=== PATIENT | female | born 1960 | race Caucasian/White ===

== ENCOUNTER 2023-04-28 17:12 | Outpatient (CLI) | payer BC, MEDICARE, SELFPAY | END 2023-04-28 17:13 | disposition home or self-care (01) | LOC: LKVREF 17:13 | PROVIDERS: PCP Emergency Medicine; Visit Provider Emergency Medicine | DX: I10 Essential (primary) hypertension (principal) | CPT/HCPCS: 80053 ==

== ENCOUNTER 2023-05-21 14:58 | Outpatient (CLI) | payer MEDICARE, SELFPAY ==
--- NOTE | 2023-05-21 15:30 | XR_ITS ---
Patient: BRIGIDO HORNE Facility:?[facility] Patient ID:?[id number] Site Patient ID:?[id number]. Site :?[id number] Study:?DEXA-Bone Density SPINE/BOTH HIPS-05/21/2023 3:26:50 PM Ordering Physician:ALEJANDRO Final Report: DXA BONE MINERAL DENSITY STUDY Reason for exam: Screening. Current height (in): 60.5. Weight (lb): 163.0. Menopause age: 60. Ethnicity: White. 1. Have you had a previous hip or vertebral fracture? No. 2. Have you had any fractures during your adult life which did not result from significant trauma (e.g., auto accident)? No. 3. Did either of your parents have a hip fracture? No. 4. Do you smoke? No. 5. Have you ever taken Glucocorticoids? No. 6. Do you have rheumatoid arthritis? Yes. 7. Do you have secondary osteoporosis? No. 8. Do you drink 3 or more alcoholic drinks per day? No. 9. Are you being treated for osteoporosis? No. 10. Have you ever taken any of the following medications: Actonel, Evista, Fosamax, Miacalcin, Reclast, Boniva, Forteo, HRT (i.e. estrogen/hormone therapy), Protelos, Prolia, Vitamin D, Calcium, other ? please specify. ANSWER: Yes, vitamin D, calcium. 11. Do you have any of the following medical conditions: Anorexia or bulimia, asthma or emphysema, end stage renal disease, hyperparathyroidism, any seizure disorders, cancer, inflammatory bowel diseases, hysterectomy, other ? please specify. ANSWER: Yes, hyperparathyroidism, hysterectomy. 12. What was your maximum height (inches)? 61. 13. Do you perform weight bearing exercise regularly? Yes. 14. Do you regularly consume dairy products? Yes. 15. Do you drink caffeinated beverages? Yes. 16. At what age did your period start? 9. 17. Are you premenopausal? No. 18. How many full term pregnancies have you had? 1. 19. Have you ever missed your period for more than 6 months in a row (not including or menopause)? No. TECHNIQUE: Bone mineral density study was performed using the [employer]. FINDINGS: The results of the study expressed as bone mineral density (BMD) are as follows: Lumbar spine L1 to L4: BMD: 1.316 g/cm2. T-score: 2.4. Z-score: 4.2. Neck Left: BMD: 0.787 g/cm2. T-score: -0.6. Z-score: 1.0. Right: BMD: 0.794 g/cm2. T-score: -0.5. Z-score: 1.0. Total Left: BMD: 1.119 g/cm2. T-score: 1.5. Z-score: 2.7. Right: BMD: 1.072 g/cm2. T-score: 1.1. Z-score: 2.3. IMPRESSION: Normal bone density. Arsenio Pierson M.D. Diagnostic Radiologist [email or web address] JALYN/[email or web address] / be/Dictated by: Arsenio Pierson MD @ 05/22/2023 9:21:00 AM Signed by:?Arsenio Pierson MD @05/23/2023 10:15:02 AM (Electronic Signature)
== END 2023-05-21 14:59 | disposition home or self-care (01) ==
LOC: RAD 14:59
PROVIDERS: PCP Emergency Medicine; Visit Provider Emergency Medicine
DX: Z13.820 Encounter for screening for osteoporosis (principal)
CPT/HCPCS: 77080

== ENCOUNTER 2023-07-23 11:13 | Outpatient (CLI) | payer MEDICARE, SELFPAY ==
--- NOTE | 2023-07-23 11:30 | MM_ITS ---
Patient: BRIGIDO HORNE Facility:?[facility] Patient ID:?[id number] Site Patient ID:?[id number]. Site :?1960 Study:?XRay-Breast Bilateral 3D W/CAD-07/23/2023 11:51:02 AM Ordering Physician:Concha Godoy Final Report: BILATERAL SCREENING MAMMOGRAM WITH COMPUTER-AIDED DETECTION AND TOMOSYNTHESIS TECHNIQUE: CC and MLO views were obtained. These mammographic images have been obtained using full-field digital technique. These mammographic images were interpreted with the benefit of computer-aided detection. Breast Tomosynthesis was used in this interpretation. COMPARISON FILM: 06/07/21, 03/06/20, 01/10/19. FINDINGS: There are scattered areas of fibroglandular density IMPRESSION: There is no radiographic evidence for malignancy. ASSESSMENT: BI-RADS Category 1: Negative RECOMMENDATION: Routine screening mammogram in 1 year. A lay language report of this examination will be provided to the patient. Arsenio Pierson M.D. Diagnostic Radiologist [email or web address] JALYN/[email or web address] Transcribed: 1:45 p.mJackson sullivan/Dictated by: Arsenio Pierson MD @ 07/23/2023 12:30:00 PM Signed by:Shavon Pierson MD @07/23/2023 1:50:20 PM (Electronic Signature)
== END 2023-07-23 11:14 | disposition home or self-care (01) ==
LOC: MAMMO 11:14
PROVIDERS: PCP Emergency Medicine; Visit Provider Emergency Medicine
DX: Z12.31 Encounter for screening mammogram for malignant neoplasm of breast (principal)
CPT/HCPCS: 77063; 77067

== ENCOUNTER 2023-08-28 08:23 | Outpatient (CLI) | payer MEDICARE, SELFPAY | END 2023-08-28 08:24 | disposition home or self-care (01) | LOC: NFLDREF 09-01 18:07 | PROVIDERS: PCP Emergency Medicine; Referring Provider Emergency Medicine; Visit Provider Emergency Medicine | DX: Z00.00 Encounter for general adult medical examination without abnormal findings (principal); I10 Essential (primary) hypertension; E78.1 Pure hyperglyceridemia; R73.03 Prediabetes; E03.9 Hypothyroidism, unspecified | CPT/HCPCS: 80053; 80061; 84439; 84443 ==

== ENCOUNTER 2023-11-16 15:30 | Outpatient (RCR) | payer MEDICARE, SELFPAY ==
--- NOTE | 2023-08-11 14:36 | PT.OPE ---
PT [place] Outpatient Eval PT [facility] Outpatient Eval Start: 08/10/23 16:50 Freq: Status: Active Protocol: Document 08/11/23 10:19 LSL (Rec: 08/11/23 11:15 LSL [id number]) E-signed By Sunita Herrmann PT Physical Therapy Outpatient Evaluation Insurance Information Recert Due Date 11/09/23 Insurance Name Medicare B,Blue Cross/Blue Shield Medical Diagnosis lumbar radiculopathy Referring MD [place] Subjective Subjective Pt. began having pain in June after helping her mom and daughter move. Pain began Thursday and she went to [facility] on Thursday07/21/23. They have ordered and MRI for 08/18/23. Pt. c/o constant ache, sharp and burning in the L lateral hip into groin and anterior thigh to knee. Tramadol and laying down help decrease her pain but she is out of tramadol. Sleeping in adjustable bed with feet and back elevated decreases pain. Sometimes I wake up in the morning fine but within 30 minutes the pain is really bad . Forward bending and putting weight through L LE increase pain. Driving car and needing to turn body can also increase pain. I want to be able to ride a bike and hike. I do workout 3-4 days/week at [employer] on [address] and lift a few weights. Pain Comments 0/10 best if laying down, 10/ 10 worst Date of Last Physician Visit 08/03/23 Current Work Status Retired Precautions Weight Bearing Status Full Weight Bearing Therapy Limitations/Systems Review Not Limited Objective Range of Motion AROM - lumbar flexion 40% with pain, extension 50% with pain returning to neutral, RLF 30% with pain, LLF WNL, R rotation 50% with pain, L rotation WNL PROM R SKC WNL, L SKC 60% with pain, DKC 60% with pain, PPU 80% Strength LE - R LE intact, L hip ER and HS 4+/5 with pain, L hip flexion 4-/5 with pain, L hip abduction 3+/5 with pain Trunk - upper abdominals 2-/5 due to pain, lower abdominals 2/5, extensors 2+/5 with pain Swelling perhaps mild swelling about L3 -4 spinous processes Palpation L lumbar paraspinals tight and tender about L4, L glut med tender laterally Balance & Gait antalgic pattern with weight shift to R and decrease WB and stance on L Posture L hip slightly elevated Sensation/Reflexes Reflexes - B LE intact SLR - R negative, L positive Other/Pertinent Objective Joint Play - unremarkable for restriction throughout lumbar spine centrally or unilaterally Assessment Assessment/Impression Pt. is a 63 y/o female who presents with signs and symptoms consistent with L3-4 nerve root compression and lumbar strain. She has a moderate to severe level of pain with decreased stance on her L leg during gait and on her L side in sitting. She has moderate loss of R rotation and lateral flexion and flexion with reproduction of symptoms. She will benefit from PT including NM re-ed, therex, manual therapy and may consider both traction and electric stimulation if needed for pain management. She was successful with the introduction of light mobility and stabilization exercises during today's session and was able to manage her sharper pains using these tools when she transitioned between positions. Primary Functional Limitations bending, lifting, reaching, walking, standing Plan of Care Rehabilitation Potential Excellent Physical Therapy Goals SHORT TERM GOALS: (4 weeks) 1. Pt. able to ambulate with normal gait pattern. 2. Pt. able to go through 60% of her ROM with pain less than 3/10. 3. Pt. able to lift 10 pound items from floor to overhead with body mechanics that decrease stress to her lumbar region. 4. Pt. able to safely return to gym. [facility] GOALS: (5+ weeks) 1. Pt. able to resume hiking. 2. Pt. able to ride her bike with pain less than 2/10. 3. Pt. able to lift/carry 30 pounds with pain less than 3/ 10. Coordination/Communication With Referral Source Treatment Plan/Direct Interventions Electrical Stimulation,Joint Mobilization,Manual Therapy, Neuromuscular Re-ed,Self-Care/ Home Management,Therapeutic Exercises,Traction (Mechanical ) Frequency/Duration 2x/week 3 weeks then 1-2x/week 3 weeks Patient Will Be Discharged From Therapy Completion of LTG(s),Skills Plateau,Independent w/HEP, Independently Progressing Evaluation Billing Untimed Code Treatment Minutes 40 Complexity Moderate Certification Information Initial Certification Date 08/11/23 Ending Certification Date 11/09/23 Provider Signature Shows Agreement With POC & Medical Necessity Physician Signature & Date Requested Please Sign/Date Here Physician Comment/Change : Physician NPI Number #
--- NOTE | 2023-11-16 16:28 | PT.OPDN ---
PT [place] Outpatient Daily Note PT [facility] Outpatient Daily Note Start: 08/10/23 16:50 Freq: Status: Active Protocol: Document 11/16/23 15:35 LSL (Rec: 11/16/23 16:27 LSL [id number]) E-signed By Suinta Herrmann, PT PT OP Daily Progress Note Visit Information Note Type Daily Note Visit Number [id number] Insurance Authorized Visits TBD Physician Authorized Visits eval & treat Insurance Information Recert Due Date 11/09/23 Insurance Name Medicare B,Blue Cross/Blue Shield Medical Diagnosis lumbar radiculopathy Treating Diagnosis pain, weakness, impaired ROM, impaired gait, impaired balance Referring MD [place]/Jc Subjective Subjective Pt. reports she went all day yesterday without laying down and she knows she needs to lay down because it was really tough on her. Date of Surgery (If applicable) 11/19/23 Precautions Weight Bearing Status Full Weight Bearing Home Exercise Home Exercise Comments MEDBRIDGE: [id number] supine lumbar rotation, prone on elbows, standing lumbar extension, TA brace, seated trunk flexion/extension, squat , quadruped UE, quadruped LE Objective Other/Pertinent Objective AROM lumbar flexion and LLF 75 %, RLF 60%, extension 75% STRENGTH - Trunk upper abdominals 2/5 with pain, lower abdominals 3/5, extensors 5/5; L LE HS 5/5, hip flexor 5-/5, hip extension 5/5, hip abduction 4/5 with pain GAIT - most days normal, some days minimally antalgic Patient Instructed in Risks/Benefits Yes Therapeutic Exercise Therapeutic Exercise Minutes (minutes) 40 Therapeutic Exercise: To Restore -NuStep S7 L6 8' Functional Status -leg press S6 70# 3x10 -sit to stand 15# 2x10 -farmers carry 15# 35' ea -waiters carry 15# 35' ea -around the world 15# 1x ea direction to fatigue -pallof press 9# 15x ea, 2x ea isometric -reverse lunge with TRX 2x10 -honey chair 10x -SI joint mobility supine hooklying 10x ea -bridge 10x, ball bridge 10x with measurements for recert Treatment Minutes Timed Code Treatment Minutes 40 Total Treatment Time 40 Billing Units Therapeutic Exercise Units 3 Assessment/Impression Assessment/Impression Rosie still requires tylenol and pain meds to manage her pain but she has made good gains in strength and range and her gait has normalized since SOC. She is in a good position to do well post operatively due to her hard work. This recert will encompass the normal 4 week time period prior to starting PT after surgery, should she need PT. Plan of Care Physical Therapy Goals SHORT TERM GOALS: (4 weeks) 1. Pt. able to ambulate with normal gait pattern. (MET) 2. Pt. able to go through 60% of her ROM with pain less than 3/10.(MET) 3. Pt. able to lift 10 pound items from floor to overhead with body mechanics that decrease stress to her lumbar region.(MET) 4. Pt. able to safely return to gym. [facility] GOALS: (5+ weeks) ( has not attempted any of the below things) 1. Pt. able to resume hiking. 2. Pt. able to ride her bike with pain less than 2/10. 3. Pt. able to lift/carry 30 pounds with pain less than 3/ 10. Daily Plan of Care Change POC; See Comments Daily Plan of Care Comments Patient is having surgery on Recertification Information Initial Certification Date 08/11/23 Recertification Start Date 11/09/23 Recertification Due Date 02/14/24 Reasons to Continue Skilled Therapy she is having spinal surgery Rehabilitation Potential Excellent Continued Plan of Care and Interventions hold until further referral for PT after surgery, then will consist of therex, manual therapy and modalities prn Provider Signature Shows Agreement With POC & Medical Necessity Physician Comment/Change Comment or Changes Physician NPI Number #
== END 2024-03-15 23:59 | disposition home or self-care (01) ==
PROVIDERS: PCP Emergency Medicine; Visit Provider Orthopaedic Surgery
DX: M54.16 Radiculopathy, lumbar region (principal); R26.9 Unspecified abnormalities of gait and mobility; R26.81 Unsteadiness on feet; Z51.89 Encounter for other specified aftercare
CPT/HCPCS: 72148; 80048; 97012; 97032; 97110; 97112; 97140; 97162

== ENCOUNTER 2023-11-24 09:06 | Outpatient (CLI) | payer MEDICARE, SELFPAY | END 2023-11-24 09:07 | disposition home or self-care (01) | LOC: NFLDREF 11-26 08:44 | PROVIDERS: PCP Emergency Medicine; Referring Provider Emergency Medicine; Visit Provider Emergency Medicine | DX: E03.9 Hypothyroidism, unspecified (principal) | CPT/HCPCS: 84443 ==

== ENCOUNTER 2024-01-28 10:06 | Outpatient (CLI) | payer MEDICARE, SELFPAY | END 2024-01-28 10:07 | disposition home or self-care (01) | PROVIDERS: PCP Emergency Medicine; Visit Provider Emergency Medicine | DX: D64.9 Anemia, unspecified (principal) | CPT/HCPCS: 82728; 83540; 83550 ==

== ENCOUNTER 2024-02-03 10:05 | Outpatient (CLI) | payer MEDICARE, SELFPAY | END 2024-02-03 10:06 | disposition home or self-care (01) | LOC: LKVREF 10:05 | PROVIDERS: PCP Emergency Medicine; Visit Provider Emergency Medicine | DX: I10 Essential (primary) hypertension (principal); Z01.818 Encounter for other preprocedural examination | CPT/HCPCS: 80048 ==

== ENCOUNTER 2024-02-11 07:54 | Day surgery (SDC) | payer MEDICARE, SELFPAY ==
[2024-02-11 08:17] VITALS: BP 120/72; PULSE 71; RESP 16; TEMP 36.6; O2SAT 97; BMI 28.7
[2024-02-11] MEDS: SODIUM CHLORIDE 0.9 % (FLUSH) 10 ML SYRINGE IVF (08:20)
[2024-02-11] MEDS: BUPIVACAINE 0.5% 30 ML INJECTION (09:49)
[2024-02-11] MEDS: LIDOCAINE 1%-EPI 1:100,000 20 ML INFILTRATI (09:49)
[2024-02-11 10:02] VITALS: BP 105/72; PULSE 87; RESP 16; TEMP 36.3; O2SAT 96
--- NOTE | 2024-02-11 10:07 | PM.PROC ---
Procedure Note Time Seen by Provider: 10:07 Date Seen: 02/11/24 Date of procedure: 02/11/24 Will [facility] bill your pro fee for this procedure?: Yes Procedure Description: Preoperative Diagnosis: 63-year-old with chronic vulvar itching, labial adhesions and due for cervical cancer screening. Postoperative diagnosis: Same Procedure: Pap smear, vulvar adhesiolysis, vulvar biopsy Anesthesia: Mac, local Surgeon: Lourdes Bella MD IV fluid: None Estimated blood loss: 2 mL Urine output: Not recorded Specimen: Pap smear and vulvar biopsy to pathology Findings: On exam under anesthesia the labia minora are completely obliterated and adherent at the superior aspect. The clitoris is obliterated. There is hypopigmentation of the vulvar skin from superior to the clitoris to the middle of where the labia minora previously had been. No erythema or edema. Vaginal tissue is atrophic consistent with her menopausal state. Procedure: Rosie was taken to the operating room where conscious sedation was found be adequate. She was placed in dorsal lithotomy position an exam under anesthesia was performed with findings stated above. No prep was performed. A sterile, bivalve, metal, Vasquez speculum was advanced into the vaginal canal to visualize the cervix. The cervix was stenotic consistent with menopause. A Pap smear was obtained. Attention was turned to performing the adhesiolysis. The superior aspect of the vaginal introitus was adherent inferior to the clitoris. These adhesions were taken down with blunt pressure. There was much thicker adhesions around the clitoral sotelo which could not be lysed. Attention was then turned performing the vulvar biopsy. The biopsy was obtained on the right labia minora at approximately the 9 o'clock position. 0.5% Marcaine with plain was injected underneath the skin for analgesia. 1 mL was used. A 4 mm punch biopsy was performed. The biopsy site was reapproximated with 1 figure of 8 suture using 4-0 Vicryl for hemostasis. Sponge, lap and instrument counts were correct x2 at the end of the procedure. The patient was awakened from anesthesia and taken to the recovery area in stable condition. Anesthesia: MAC and local Estimated blood loss (mL): 2 IV fluids (mL): 0 Urine output (mL): 0 Pathology: specimen obtained, sent to pathology Condition: stable Disposition: same day
[2024-02-11 10:15] VITALS: BP 109/68; PULSE 73; RESP 16; O2SAT 93
--- NOTE | 2024-02-11 10:20 | W.PM.H&PU ---
History & Physical Update History & Physical Update H&P Reviewed and patient assessed: No changes noted
--- NOTE | 2024-02-11 10:24 | W.ANESCHARGE ---
Anesthesia Charges Start Date/Time Anesthesia Start Date: 02/11/24 Anesthesia Start Time: 09:26 Stop Date/Time Anesthesia Stop Date: 02/11/24 Anesthesia Stop Time: 10:05
[2024-02-11 10:30] VITALS: BP 113/72; PULSE 65; RESP 16; O2SAT 95
[2024-02-11 10:45] VITALS: BP 121/71; PULSE 66; RESP 16; O2SAT 93
--- NOTE | 2024-02-11 10:59 | SUR.PHASEII ---
Pt eating crackers, denies pain.
== END 2024-02-11 11:10 | disposition home or self-care (01) ==
LOC: OR 07:55
PROVIDERS: PCP Emergency Medicine; Visit Provider Obstetrics & Gynecology
PROC: (CPT 56740; principal; 2024-02-11 09:15)
DX: L29.2 Pruritus vulvae (principal); N90.4 Leukoplakia of vulva; N95.2 Postmenopausal atrophic vaginitis; Z12.4 Encounter for screening for malignant neoplasm of cervix
CPT/HCPCS: 56441; 56605; 00940; 87624; 87625; 88141; 88142; 88305; J0665; J1100; J1885; J2250; J2405; J2704; J3010; J3490

== ENCOUNTER 2024-02-16 10:05 | Outpatient (CLI) | payer MEDICARE, SELFPAY | END 2024-02-16 10:06 | disposition home or self-care (01) | LOC: NFLDREF 02-17 11:37 | PROVIDERS: PCP Emergency Medicine; Visit Provider Emergency Medicine | DX: E03.9 Hypothyroidism, unspecified (principal) | CPT/HCPCS: 84443 ==

== ENCOUNTER 2024-02-22 13:29 | Outpatient (CLI) | payer MEDICARE, SELFPAY ==
--- NOTE | 2024-03-02 08:43 | W.PM.SLEEP ---
Sleep Study Details Details Interpreting Provider: Annalee Date of Sleep Study: 02/22/24 Sleep Study Details: STUDY TYPE:? Home unattended ? BMI:? 29.9 ORDERING PROVIDER:Barby Mantilla INDICATION:? Concern about sleep apnea ? SLEEP SUMMARY:? 574 minutes monitored RESPIRATORY SUMMARY:? AHI 73.2 per CMS guidelines Low oxygen 74 26.3% of study oxygen less than 90% Snoring 91.4% There were 67 central apneas, 232 obstructive apneas, 438 hypopneas PERIODIC LIMB MOVEMENTS OF SLEEP:? Not recorded CARDIAC:? 56-91, mean 63.8 beats per minute IMPRESSION:? Severe obstructive sleep apnea with some central apneas RECOMMENDATION: In-lab titration for CPAP and/or bilevel.
== END 2024-02-22 13:30 | disposition home or self-care (01) ==
PROVIDERS: PCP Emergency Medicine; Visit Provider Otolaryngology
DX: G47.33 Obstructive sleep apnea (adult) (pediatric) (principal)
CPT/HCPCS: 95806

== ENCOUNTER 2024-02-29 08:08 | Outpatient (CLI) | payer MEDICARE, SELFPAY ==
--- NOTE | 2024-02-29 09:33 | W.ANESCHARGE ---
Anesthesia Charges Start Date/Time Anesthesia Start Date: 02/29/24 Anesthesia Start Time: 09:08 Stop Date/Time Anesthesia Stop Date: 02/29/24 Anesthesia Stop Time: 09:29
--- NOTE | 2024-02-29 10:07 | W.ANESCHARGE ---
Anesthesia Charges Start Date/Time Anesthesia Start Date: 02/29/24 Anesthesia Start Time: 09:08 Stop Date/Time Anesthesia Stop Date: 02/29/24 Anesthesia Stop Time: 09:29
== END 2024-02-29 08:09 | disposition home or self-care (01) ==
LOC: OP CLINIC 08:09
PROVIDERS: PCP Emergency Medicine; Visit Provider Internal Medicine
DX: D12.3 Benign neoplasm of transverse colon (principal); Z86.0100 Personal history of colon polyps, unspecified
CPT/HCPCS: 00811; 45385; 88305; J2405; J2704

== ENCOUNTER 2024-03-03 10:15 | Outpatient (RCR) | payer MEDICARE, SELFPAY | END 2024-03-03 11:05 | disposition home or self-care (01) | PROVIDERS: PCP Emergency Medicine; Visit Provider Physician Assistant | DX: Z48.89 Encounter for other specified surgical aftercare (principal); Z51.89 Encounter for other specified aftercare ==

== ENCOUNTER 2024-09-15 09:09 | Outpatient (CLI) | payer MEDICARE, SELFPAY | END 2024-09-15 09:10 | disposition home or self-care (01) | LOC: NFLDREF 09-19 14:57 | PROVIDERS: PCP Emergency Medicine; Referring Provider Emergency Medicine; Visit Provider Emergency Medicine | DX: E03.9 Hypothyroidism, unspecified (principal); I10 Essential (primary) hypertension; E78.1 Pure hyperglyceridemia; R73.03 Prediabetes | CPT/HCPCS: 80048; 80061; 84443 ==